=== PATIENT | male | born 1955 | race Caucasian/White ===

== ENCOUNTER 2017-12-11 20:10 | Emergency (ER) | payer OTHER ==
--- OUTSIDE RECORDS SUMMARY | 2017-12-11 20:22 | XMS REPORT ---
:1955 External Reference #:[id number] Author Organization [employer] Address [address] [address] Phone [phone] Care Team Providers Name Role Phone Fabi Lopez MD Primary Care Physician Unavailable Payers Type Date Identification Numbers Payment Provider Subscriber Commercial Policy Number: [id number] [employer] Shekhar [employer] Group Number: [id number] [address] PayID: [id number] [place] [address] Problems Date Description Provider Status Onset: 07/03/2015 Localized, primary osteoarthritis Cheryl Dunn M.D. Active Onset: 02/24/2016 Abnormal involuntary movement Simon English MD Active Onset: 03/11/2016 White matter disease, unspecified Simon English MD Active Onset: 09/09/2017 Parkinson's disease Simon English MD Active Family History Date Family Member(s) Problem(s) Comments General Cancer Social History Type Date Description Comments Lives With Occupation Currently Working ETOH Use Occasionally consumes alcohol Smoking Patient has never smoked Exercise Type/Frequency Exercises regularly Allergies, Adverse Reactions, Alerts Date Description Reaction Status Severity Comments 03/25/2015 NKDA active Medications Medication Date Status Form Strength Qnty SIG Indications Ordering Provider Brimonidine / Active Solution 0.15% 1 gtt bid Unknown Tartrate 0000 ou Multivitamin // Active Unknown 0000 Carbidopa-Levodo / Active Unknown pa 0000 Azilect 09/15/ Hx Tablets 0.5mg 21tab 1 by mouth Simon sandoval qd x 3 Amador 11/25/ weeks. MD Boyd Azilect 09/15/ Hx Tablets 1mg 30tab 1 by mouth Simon sandoval every day Amador, 11/25/ after 2017 finishing the 0.5 mg tablets. Azilect 09/09/ Hx Tablets 0.5mg 60tab 1 by mouth G20 Simon 2017 - s every day Amador, 11/25/ for 3 2017 weeks then 2 every morning Hydrocortisone 08/02/ Hx Cream 2.5% 20gm apply a M17.11 Missy 2016 - thin layer MD Alexis to 2016 affected area bid No Active Unknown Medications 2014 - 2014 Naproxen 07/03/ Hx Tablets 500mg 60tab 1 tablet M17.11 Cheryl 2014 - with food Shaun, 02/09/ by mouth M.D. 2016 twice a day T.E.D. 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 Large/Regular Ecotrin 03/25/ Hx Tablets DR 325mg 60tab 1 tab Z51.89 Cheryl 2014 - s twice per Shaun, 07/02/ day po M.D[place] 2014 Xarelto / Hx Tablets 10mg 1 p.o Unknown 0000 - every d x 2 weeks 2014 Eye Drops / Hx Unknown 0000 - 2015 Aspirin Ec Low / Hx Tablets DR 81mg 1 by mouth Unknown Dose 0000 - every day 2017 Medications Administered in Office Medication Date Status Form Strength Qnty SIG Indications Ordering Provider Hyaluron Or Administered Injection Cheryl Derivative,Ort 018 Esa Dunn [facility],For Intra-Articula r Inj Per Dose Depomedrol Administered Injection Cheryl 40MG 015 Esa Dunn Vital Signs Date Vital Result Comment 12/03/2017 Height 62 inches 5'2" Weight 190.00 lb BP Systolic 110 mmHg BP Diastolic 66 mmHg Respiratory Rate 18 /min Pain Level 0 BMI (Body Mass Index) 34.7 kg/m2 11/26/2017 Height 62 inches 5'2" Weight 190.00 lb Heart Rate 52 /min BP Systolic 104 mmHg BP Diastolic 60 mmHg BMI (Body Mass Index) 34.7 kg/m2 10/15/2017 Height 73 inches 6'1" Weight 190.00 lb BP Systolic 130 mmHg BP Diastolic 86 mmHg Body Temperature 97.6 F BMI (Body Mass Index) 25.1 kg/m2 09/09/2017 Height 73 inches 6'1" Weight 194.25 lb Heart Rate 76 /min BP Systolic 130 mmHg BP Diastolic 90 mmHg BMI (Body Mass Index) 25.6 kg/m2 10/05/2016 Height 73 inches 6'1" Weight 199.00 lb Heart Rate 80 /min BP Systolic Sitting 122 mmHg BP Diastolic Sitting 80 mmHg BMI (Body Mass Index) 26.3 kg/m2 04/07/2016 Height 73 inches 6'1" Weight 185.00 lb Heart Rate 50 /min BP Systolic 120 mmHg BP Diastolic 60 mmHg BMI (Body Mass Index) 24.4 kg/m2 03/11/2016 Height 73 inches 6'1" Weight 190.00 lb Heart Rate 50 /min BP Systolic Sitting 120 mmHg BP Diastolic Sitting 70 mmHg BMI (Body Mass Index) 25.1 kg/m2 02/24/2016 Height 73 inches 6'1" Weight 190.00 lb Heart Rate 52 /min BP Systolic Sitting 122 mmHg BP Diastolic Sitting 80 mmHg Respiratory Rate 17 /min BMI (Body Mass Index) 25.1 kg/m2 08/02/2015 Height 73 inches 6'1" Weight 190.00 lb Pain Level 0 BMI (Body Mass Index) 25.1 kg/m2 07/03/2015 Height 73 inches 6'1" Weight 190.00 lb Heart Rate 47 /min BP Systolic 120 mmHg BP Diastolic 70 mmHg BMI (Body Mass Index) 25.1 kg/m2 05/29/2015 Height 73 inches 6'1" Weight 185.00 lb Pain Level 2 BMI (Body Mass Index) 24.4 kg/m2 05/06/2015 Height 73 inches 6'1" Weight 185.00 lb Heart Rate 49 /min BP Systolic 122 mmHg BP Diastolic 69 mmHg BMI (Body Mass Index) 24.4 kg/m2 04/15/2015 Pain Level 0 no pain Results Test Date Test Result H/L Range Note Cardiolipin Igg/Igm 03/26/2016 Phospholipid Ab IgM, S < 4.0 MPL 1 Phospholipid Ab IgG 4.1 GPL 2 Laboratory test finding 03/26/2016 Erythrocyte Sed Rate 8 mm/Hr 0-20 3 Lyme Disease Serology Negative Negative 4 Rheumatoid Factor <15 IU/mL <15 5 Vitamin B12 466 pg/mL 180-914 6 Vitamin D Total 25(Oh) 49.4 ng/mL 30-50 7 Anti Nuclear Antibody 0.1 U 8 Anti Gliadin Igg And Iga AB 03/26/2016 Gliadin IgG <10.0 U 9 Gliadin IgA 21.2 U 10 Lipid Profile (Trig/Chol/HDL) 03/26/2016 Triglycerides 76 mg/dL 11 Cholesterol 144 mg/dL 12 HDL Cholesterol 49.0 mg/dL 13 LDL Cholesterol 80 mg/dL 14 1 REFERENCE VALUE <10.0 (Negative) 2 REFERENCE VALUE <10.0 (Negative) Test Performed by: [place] [address] Insulation Power Unit Tender: Dionicio Tamez II, M.D., Ph.D. 3 Copy Result to: FABI LOPEZ ([id number]) 4 Serologic response to B. burgdorferi infection is not detected, but cannot rule out early infection during which low or undetectable antibody levels to B. burgdorferi may be present. If clinically indicated, a new serum specimen should be submitted in 7-14 days. Test Performed by: [place] [address] Insulation Power Unit Tender: Dionicio Tamez II, M.D., Ph.D. 5 Test Performed by: [place] [address] Insulation Power Unit Tender: Dionicio Tamez II, M.D., Ph.D. 6 Normal Range 180 to 914 Indeterminate Range 145 to 180 Deficient Range <145 7 Copy Result to: FABI LOPEZ ([id number]) 8 REFERENCE VALUE <=1.0 (Negative) Test Performed by: [place] [address] Insulation Power Unit Tender: Dionicio Tamez II, M.D., Ph.D. 9 REFERENCE VALUE <20.0 (Negative) Test Performed by: [place] [address] Insulation Power Unit Tender: Dionicio Tamez II, M.D., Ph.D. 10 Interpretation: Weak Positive (20.0-30.0) REFERENCE VALUE <20.0 (Negative) 11 Desirable <150 Borderline high 150-199 High 200-499 Very High >500 12 Desirable <200 Borderline high 200-239 High >239 13 Low <40 Desirable: 40-60 High: >60 14 Desirable: <100 mg/dL Near Optimal: 100-129 mg/dL Borderline High: 130-159 mg/dL High: 160-189 mg/dL Very High: >189 mg/dL Procedures Date CPT Code Description Status 11/26/201756946 Inject/Drain Joint/Bursa Major Completed 07/03/201501826 Inject/Drain Joint/Bursa Major Completed 03/19/2015 88456 ECHO Transthorasic Realtime 2D W Doppler & Color Completed Flow Hosp 03/17/2015 63666 EKG, Interpretation Only Completed 03/17/2015 64462 Open TX Of Femoral FX,Promimal End,Neck Internal Completed Fixation 03/17/2015 26850 Open TX Of Femoral FX,Promimal End,Neck Internal Completed Fixation Encounters Type Date Location Provider CPT E/M Dx Office Visit 10/15/2017 [facility] Cheryl Dunn M.D. 50731 M25.561 3:00p Of Noe M17.11 Office Visit 09/09/2017 10:00a [facility] [address] G20 R90.82 Office Visit 10/05/2016 9:15a [facility] [address] R90.82 R25.1 Office Visit 04/07/2016 9:30a [facility] [address] R90.82 R25.1 Office Visit 03/11/2016 3:45p [facility] [place] [address] R90.82 R25.1 Office Visit 02/24/2016 11:30a [facility] Simon English, 06412 R25.1 MD Office Visit 08/02/2015 9:00a [facility] Cheryl Dunn, 92638 M17.11 Noe See S72.001D Z51.89 Office Visit 07/03/2015 8:45a [facility] Cheryl Dunn M.D. 50683 M17.11 CHanny M25.561 M25.461 Office Visit 03/17/2015 2:18p [facility] Michele Harvey, [address]3812 794.31 Esa V72.81 Plan of Care Future Appointment(s):12/10/2017 9:30 am - [facility]
--- OUTSIDE RECORDS SUMMARY | 2017-12-11 20:22 | XMS REPORT ---
:1955 External Reference #:[id number] Author Organization [employer] Address [address] [address] Phone [phone] Care Team Providers Name Role Phone Thomas Lopez MD Primary Care Physician Unavailable Payers Type Date Identification Numbers Payment Provider Subscriber Commercial Policy Number: [id number] [employer] Shekhar Mercado Group Number: [id number] [address] PayID: [id number] [place] [address] Problems Date Description Provider Status Onset: 09/09/2017 Parkinson's disease Simon English MD Active Onset: 03/11/2016 White matter disease, unspecified Simon English MD Active Onset: 02/24/2016 Abnormal involuntary movement Simon English MD Active Onset: 07/03/2015 Localized, primary osteoarthritis Cheryl Dunn M.D. Active Family History Date Family Member(s) Problem(s) [...] - with food Shaun, 02/09/ by mouth M.DChico 2016 twice a day T.E.D. 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 Large/Regular Ecotrin 03/25/ Hx Tablets DR 325mg 60tab 1 tab Z51.89 Cheryl 2014 - twice per Shaun, 07/02/ day po M.DChico 2014 Xarelto / Hx Tablets 10mg 1 p.o Unknown 0000 - every d x 03/25/ weeks 2014 Eye Drops / Hx Unknown 0000 - 2015 Aspirin Ec Low / Hx Tablets DR 81mg 1 by mouth Unknown Dose 0000 - every day 2017 Medications Administered in Office Medication Date Status Form Strength Qnty SIG Indications Ordering Provider Depomedrol Administered Injection Cheryl 40MG 015 Esa Dunn Vital Signs Date Vital Result Comment 11/26/2017 Height 62 inches 5'2" Weight 190.00 [...] REFERENCE VALUE <10.0 (Negative) Test Performed by: [place] [address] Security Representative: Dionicio Tamez II, M.D., Ph.D. 3 Copy Result to: THOMAS LOPEZ ([id number]) 4 Serologic response to B. burgdorferi infection is not detected, but cannot rule out early infection during which low or undetectable antibody levels to B. burgdorferi may be present. If clinically indicated, a new serum specimen should be submitted in 7-14 days. Test Performed by: [place] [address] Security Representative: Dionicio Tamez II, M.D., Ph.D. 5 Test Performed by: [place] [address] Security Representative: Dionicio Tamez II, M.D., Ph.D. 6 Normal Range 180 to 914 Indeterminate Range 145 to 180 Deficient Range <145 7 Copy Result to: THOMAS LOPEZ ([id number]) 8 REFERENCE VALUE <=1.0 (Negative) Test Performed by: [place] [address] Security Representative: Dionicio Tamez II, M.D., Ph.D. 9 REFERENCE VALUE <20.0 (Negative) Test Performed by: [facility] - [address] [address] Security Representative: Dionicio Tamez II, M.D., Ph.D. 10 Interpretation: [...] mg/dL Procedures Date CPT Code Description Status 11/26/201718847 Inject/Drain Joint/Bursa Major Completed 07/03/2015 35873 Inject/Drain Joint/Bursa Major Completed 03/19/2015 42182 ECHO Transthorasic Realtime 2D W Doppler & Color Completed Flow Hosp 03/17/2015 52296 EKG, Interpretation Only Completed 03/17/2015 81796 Open TX Of Femoral FX,Promimal End,Neck Internal Completed Fixation 03/17/2015 59637 Open TX Of Femoral FX,Promimal End,Neck Internal Completed Fixation Encounters Type Date Location Provider CPT E/M Dx Office Visit 10/15/2017 [facility] Cheryl Dunn M.D. 89574 M25.561 3:00p Of Noe M17.11 Office Visit 09/09/2017 10:00a [facility] [address] G20 R90.82 Office Visit 10/05/2016 9:15a [facility] [place] [address] R90.82 R25.1 Office Visit 04/07/2016 9:30a [facility] [place] [address] R90.82 R25.1 Office Visit 03/11/2016 3:45p [facility] [place] [address] R90.82 R25.1 Office Visit 02/24/2016 11:30a [facility] Simon English 92071 R25.1 MD Office Visit 08/02/2015 9:00a [facility]yl Dunn, 52205 M17.11 Noe See S72.001D Z51.89 Office Visit 07/03/2015 8:45a [facility] Dunn M.D. 04040 M17.11 CHanny M25.561 M25.461 Office Visit 03/17/2015 2:18p [facility] Michele Harvey, 37598 794.31 Esa V72.81 Plan of Care Future Appointment(s):12/10/2017 9:30 am - [facility]12/03/2017 9:30 am - [facility]11/26/2017 - Cheryl Dunn M.D.M25.561 Pain in right kneeFollow up:Follow up: 1 weekM17.11 Unilateral primary osteoarthritis, right kneeM25.461 Effusion, right knee
[2017-12-11 22:26] LABS: Hematocrit 41 % (42-52); Hemoglobin 13.8 g/dl (14.0-18.0); Mean Corpuscular HGB Conc 34 g/dl (31-36); Mean Corpuscular Hemoglobin 30 pg (27-31); Mean Corpuscular Volume 87 fL (80-94); Mean Platelet Volume 7.9 um3 (7.4-10.4); Platelet Count 176 10^3/ul (150-450); Red Blood Count 4.66 10^6/ul (4.0-5.4); Red Cell Distribution Width 12 % (10.5-15); White Blood Count 17.5 10^3/ul (3.5-10.8)
[2017-12-11 22:45] LABS: EGFR Non-African American 68.1 (>60)
[2017-12-11 22:52] LABS: ABS Basophils 0 10^3/ul (0-0.2); ABS Eosinophils 0 10^3/ul (0-0.6); ABS Lymphocytes 0.5 10^3/ul (1.0-4.8); ABS Monocytes 1.4 10^3/ul (0-0.8); ABS Neutrophils 15.5 10^3/ul (1.5-7.7)
[2017-12-11 22:58] LABS: ABS Nucleated RBC 0 10^3/ul; Eosinophil % 0.2 % (0-6); Lymphocyte % 2.7 % (25-47); Nucleated Red Blood Cells % 0
[2017-12-11] MEDS ORDERED: Ondansetron ODT TAB* 4 MG PO ONE (23:32)
[2017-12-12] MEDS ORDERED: Acetaminophen TAB* 325 MG PO ONE (00:09)
[2017-12-12 00:32] LABS: Urine Appearance Clear; Urine Blood Negative (Negative); Urine Color Yellow; Urine Ketones Negative (Negative); Urine Protein Negative (Negative); Urine Specific Gravity 1.017 (1.010-1.030); Urine Urobilinogen Negative (Negative)
[2017-12-12] MEDS ORDERED: Iohexol 300* (CONTRAST) 10 ML SDV IV ONE (01:21)
--- NOTE | 2017-12-12 01:48 | ED ---
Abdominal Pain/Male - HPI Summary HPI Summary: Complains of sudden onset severe shaking and chills at around 5:30pm today which improved while he was here in the waiting room, nausea and epigastric pain 2 hours. Epigastric pain described as 9/10 at its worst, improved temporarily with Tums to a 2/10. History of stomach pain when patient has not eaten, states he has not eaten in 8 hours. History of Parkinson's. Denies cough, sore throat, CP, SOB, V/D, change in urinary BM. Medical history is ulcer, Parkinson's. - History of Current Complaint Chief Complaint: EDGeneral Stated Complaint: GENERAL ILLNESS Time Seen by Provider: 12/11/17 22:39 Hx Obtained From: Patient, Family/Commanding [employer] Pain Intensity: 0 - Allergies/Home Medications Allergies/Adverse Reactions: Allergies Allergy/AdvReac Type Severity Reaction Status Date / Time No Known Allergies Allergy Verified 12/11/17 20:17 PMH/Surg Hx/FS Hx/Imm Hx Endocrine/Hematology History: Denies: Hx Diabetes, Hx Thyroid Disease Cardiovascular History: Denies: Hx Hypertension, Hx Pacemaker/ICD Respiratory History: Denies: Hx Asthma, Hx Chronic Obstructive Pulmonary Disease (COPD) GI History: Denies: Hx Ulcer History: Denies: Hx Renal Disease Sensory History: Reports: Hx Contacts or Glasses - reading glasses Denies: Hx Hearing Aid Opthamlomology History: Reports: Hx Contacts or Glasses - reading glasses Psychiatric History: Denies: Hx Panic Disorder - Cancer History Cancer Type, Location and Year: SKIN ON CHEST/LEG REMOVED BOTH BENIGN - Surgical History Surgery Procedure, Year, and Place: right shoulder surgery, right knee surgery, hernia surgery, RIGHT HIP SURGERY, GLAUCOMA DEC. Infectious Disease History: No Infectious Disease History: Denies: Hx Hepatitis, Hx Human Immunodeficiency Virus (HIV), Traveled Outside the [place] in Last 30 Days - Family History Family History: NON CONTRIBUTORY - Social History Alcohol Use: Occasionally Substance Use Type: Reports: None Smoking Status (MU): Never Smoked Tobacco Review of Systems Positive: Chills Eyes: Negative ENT: Negative Cardiovascular: Negative Respiratory: Negative Positive: Abdominal Pain, Nausea Genitourinary: Negative Musculoskeletal: Negative Skin: Negative Neurological: Negative Psychological: Normal All Other Systems Reviewed And Are Negative: Yes Physical Exam - Summary Physical Exam Summary: Patient not shaking currently here in the ED. Tender to palpation in right upper quadrant, epigastrium, left upper quadrant. Nontender in all other quadrants. Triage Information Reviewed: Yes Vital Signs On Initial Exam: Initial Vitals Temp Pulse Resp BP Pulse Ox 100.0 F 70 18 126/76 96 12/11/17 20:12 12/11/17 20:12 12/11/17 20:12 12/11/17 20:12 12/11/17 20:12 Vital Signs Reviewed: Yes Appearance: Positive: Well-Appearing Skin: Positive: Warm Head/Face: Positive: Normal Head/Face Inspection Eyes: Positive: Normal Neck: Positive: Supple Respiratory/Lung Sounds: Positive: Clear to Auscultation Cardiovascular: Positive: Normal Abdomen Description: Positive: Other: Musculoskeletal: Positive: Normal Neurological: Positive: Normal Psychiatric: Positive: Normal AVPU Assessment: Alert - [place] Coma Scale Best Eye Response: 4 - Spontaneous Best Motor Response: 6 - Obeys Commands Best Verbal Response: 5 - Oriented Coma Scale Total: 15 Diagnostics - Vital Signs Vital Signs Temp Pulse Resp BP Pulse Ox 12/12/17 01:00 54 20 106/65 97 12/12/17 00:30 56 18 118/68 98 12/12/17 00:17 58 18 99 12/12/17 00:01 58 20 118/63 96 12/12/17 00:00 55 18 97 12/11/17 23:30 55 20 112/61 97 12/11/17 23:00 55 20 97 12/11/17 22:50 55 15 118/65 97 12/11/17 22:30 54 24 98 12/11/17 20:12 100.0 F 70 18 126/76 96 - Laboratory Lab Results: Lab Results 12/11/17 12/11/17 12/11/17 Range/Units 22:20 22:20 23:02 WBC 17.5 H (3.5-10.8) 10^3/ul RBC 4.66 (4.0-5.4) 10^6/ul Hgb 13.8 L (14.0-18.0) g/dl Hct 41 L (42-52) % MCV 87 (80-94) fL MCH 30 (27-31) pg MCHC 34 (31-36) g/dl RDW 12 (10.5-15) % Plt Count 176 (150-450) 10^3/ul MPV 7.9 (7.4-10.4) um3 Neut % (Auto) 88.7 H (38-83) % Lymph % (Auto) 2.7 L (25-47) % Gonzales % (Auto) 8.2 H (0-7) % Eos % (Auto) 0.2 (0-6) % Baso % (Auto) 0.2 (0-2) % Absolute Neuts (auto) 15.5 H (1.5-7.7) 10^3/ul Absolute Lymphs (auto) 0.5 L (1.0-4.8) 10^3/ul Absolute Monos (auto) 1.4 H (0-0.8) 10^3/ul Absolute Eos (auto) 0 (0-0.6) 10^3/ul Absolute Basos (auto) 0 (0-0.2) 10^3/ul Absolute Nucleated RBC 0 10^3/ul Nucleated RBC % 0 Sodium 137 L (139-145) mmol/L Potassium 3.7 (3.5-5.0) mmol/L Chloride 103 (101-111) mmol/L Carbon Dioxide 27 (22-32) mmol/L Anion Gap 7 (2-11) mmol/L BUN 19 (6-24) mg/dL Creatinine 1.09 (0.67-1.17) mg/dL Est GFR ( Amer) 87.6 (>60) Est GFR (Non-Af Amer) 68.1 (>60) BUN/Creatinine Ratio 17.4 (8-20) Glucose 117 H (70-100) mg/dL Lactic Acid 1.5 (0.5-2.0) mmol/L Calcium 9.2 (8.6-10.3) mg/dL Total Bilirubin 1.00 (0.2-1.0) mg/dL AST 26 (13-39) U/L ALT 18 (7-52) U/L Alkaline Phosphatase 46 (34-104) U/L C-Reactive Protein 2.17 (< 5.00) mg/L Total Protein 6.7 (6.4-8.9) g/dL Albumin 4.0 (3.2-5.2) g/dL Globulin 2.7 (2-4) g/dL Albumin/Globulin Ratio 1.5 (1-3) Lipase 26 (11.0-82.0) U/L Urine Color Urine Appearance Urine pH (5-9) Ur Specific [place] (1.010-1.030) Urine Protein (Negative) Urine Ketones (Negative) Urine Blood (Negative) Urine Nitrate (Negative) Urine Bilirubin (Negative) Urine Urobilinogen (Negative) Ur Leukocyte Esterase (Negative) Urine Glucose (Negative) 12/12/17 Range/Units 00:03 WBC (3.5-10.8) 10^3/ul RBC (4.0-5.4) 10^6/ul Hgb (14.0-18.0) g/dl Hct (42-52) % MCV (80-94) fL MCH (27-31) pg MCHC (31-36) g/dl RDW (10.5-15) % Plt Count (150-450) 10^3/ul MPV (7.4-10.4) um3 Neut % (Auto) (38-83) % Lymph % (Auto) (25-47) % Gonzales % (Auto) (0-7) % Eos % (Auto) (0-6) % Baso % (Auto) (0-2) % Absolute Neuts (auto) (1.5-7.7) 10^3/ul Absolute Lymphs (auto) (1.0-4.8) 10^3/ul Absolute Monos (auto) (0-0.8) 10^3/ul Absolute Eos (auto) (0-0.6) 10^3/ul Absolute Basos (auto) (0-0.2) 10^3/ul Absolute Nucleated RBC 10^3/ul Nucleated RBC % Sodium (139-145) mmol/L Potassium (3.5-5.0) mmol/L Chloride (101-111) mmol/L Carbon Dioxide (22-32) mmol/L Anion Gap (2-11) mmol/L BUN (6-24) mg/dL Creatinine (0.67-1.17) mg/dL Est GFR ( Amer) (>60) Est GFR (Non-Af Amer) (>60) BUN/Creatinine Ratio (8-20) Glucose (70-100) mg/dL Lactic Acid (0.5-2.0) mmol/L Calcium (8.6-10.3) mg/dL Total Bilirubin (0.2-1.0) mg/dL AST (13-39) U/L ALT (7-52) U/L Alkaline Phosphatase (34-104) U/L C-Reactive Protein (< 5.00) mg/L Total Protein (6.4-8.9) g/dL Albumin (3.2-5.2) g/dL Globulin (2-4) g/dL Albumin/Globulin Ratio (1-3) Lipase (11.0-82.0) U/L Urine Color Yellow Urine Appearance Clear Urine pH 7.0 (5-9) Ur Specific [place] 1.017 (1.010-1.030) Urine Protein Negative (Negative) Urine Ketones Negative (Negative) Urine Blood Negative (Negative) Urine Nitrate Negative (Negative) Urine Bilirubin Negative (Negative) Urine Urobilinogen Negative (Negative) Ur Leukocyte Esterase Negative (Negative) Urine Glucose Negative (Negative) Result Diagrams: 12/11/17 22:20 12/11/17 22:20 Lab Statement: Any lab studies that have been ordered have been reviewed, and results considered in the medical decision making process. - CT ab/pel CT Interpretation: No Acute Changes CT Interpretation Completed By: Radiologist Abdominal Pain Fem Course/Dx - Course Course Of Treatment: Complains of sudden onset severe shaking and chills at around 5:30pm today which improved while he was here in the waiting room, nausea and epigastric pain 2 hours. Epigastric pain described as 9/10 at its worst, improved temporarily with Tums to a 2/10. History of stomach pain when patient has not eaten, states he has not eaten in 8 hours. History of Parkinson 's. Denies cough, sore throat, CP, SOB, V/D, change in urinary BM. Medical history is ulcer, Parkinson's. Patient not shaking currently here in the ED. Tender to palpation in right upper quadrant, epigastrium, left upper quadrant. Nontender in all other quadrants. Shaking did not return during the ED stay. Nausea and epigastric pain is resolved. CT negative for acute process. Vital signs within normal limits. Labs unremarkable. Discharge home follow up with primary care. - Diagnoses Provider Diagnoses: Abdominal pain, Shaking Discharge - Sign-Out/Discharge Documenting (check all that apply): Discharge/Admit/Transfer - Discharge Plan Condition: Stable Disposition: HOME Patient Education Materials: Epigastric Pain (ED) Referrals: Thomas Lopez MD [Primary Care Provider] - Additional Instructions: Follow-up with primary care. Return to the ED for any new or worsening symptoms - Billing Disposition and Condition Condition: STABLE Disposition: HOME
[2017-12-12] MEDS ORDERED: NS 0.9% 1000 ML* 1,000 ML IV ONE (02:14)
[2017-12-12 03:24] VITALS: BP 112/60
--- NOTE | 2017-12-12 09:22 | RAD ---
INDICATION: Generalized illness. Increased tremors. Recent diagnosis of Parkinson's disease. Previous hernia repair. COMPARISON: No relevant prior exams available on the [facility] PACS for comparison. TECHNIQUE: Multidetector CT images were obtained from the lung bases to the ischial tuberosities with 100 mL Omnipaque 300 IV and oral contrast. Multiplanar reformation. REPORT: Mild cardiomegaly. Minimal basilar dependent atelectasis. The liver, gallbladder, pancreas, and spleen are unremarkable. Negative for CT abnormality of the upper GI, small bowel, appendix, or colon. Enteric contrast extends to the transverse colon. Negative for ascites, free air, hernias. Normal adrenal glands. Symmetric nephrograms and pyelograms. No focal renal lesions evident. Normal variant extrarenal LEFT renal pelvis. No suspicious finding along the course of the nondilated ureters. Unremarkable partially distended urinary bladder. Symmetric seminal vesicles. Enlarged prostate. Negative for lymphadenopathy. Normal diameter abdominal aorta and iliac arteries. Physiologic distention of the IVC. Cannulated lag screws at the RIGHT femoral neck with associated artifact. Multilevel degenerative spondylosis and facet joint osteoarthritis. At L4-L5 dorsal disc osteophyte complex and posterior element hypertrophic arthropathy results in severe acquired central canal stenosis. Multilevel foraminal stenosis most prominent at L5-S1 where it is severe bilaterally. Negative for fracture or suspicious focal osseous lesions. IMPRESSION: 1. No acute abdominal pelvic visceral pathologic process evident. 2. Severe acquired spinal stenosis.
== END 2017-12-12 03:26 | disposition home or self-care (01) ==
LOC: ED 20:10
DX: R10.9 Unspecified abdominal pain (principal); R11.0 Nausea; R25.1 Tremor, unspecified
CPT/HCPCS: 36415; 74177; 80053; 81003; 83605; 83690; 85025; 86140; 99284; A9270-GY; Q9967